=== PATIENT | male | born 1965 | race American Indian/Alaskan Native ===

== ENCOUNTER 2022-05-01 09:19 | Day surgery (SDC) | payer OTHER ==
[2022-05-01] MEDS ORDERED: LACTATED RINGERS 1,000 ML ONE (10:00)
[2022-05-01] MEDS ORDERED: MIDAZOLAM 2 MG/2 ML INJ ONE (10:35)
--- NOTE | 2022-05-01 10:36 | Anesthesia Consultation ---
Anesthesia Consult and Med Hx Date of service: 05/01/22 - Airway Anesthetic Teeth Evaluation: Good Mental/Hyoid Distance: Adequate Mallampati Class: Class II Intubation Access Assessment: Good - Pulmonary Exam CTA: Yes - Cardiac Exam Cardiac Exam: RRR - Pre-Operative Health Status ASA Pre-Surgery Classification: ASA3 Proposed Anesthetic Plan: General - Pulmonary Hx Smoking: Yes (STOPPED X 20 YRS) Hx Sleep Apnea: No (SYED PRE SCREEN HIGH RISK) - Cardiovascular System Hx Hypertension: Yes Hx Heart Murmur: Yes (1999) - Endocrine Hx Non-Insulin Dependent Diabetes: Yes - Hematic Hx Anemia: No - Other Systems Hx Alcohol Use: Yes (2-3 DRINKS PER DAY) Hx Cancer: No
--- NOTE | 2022-05-01 10:36 | Anesthesia Day of Surgery ---
Anesthesia Day of Surgery - Day of Surgery Patient Examined: Yes Patient H&P Reviewed: Yes Patient is NPO: Yes
[2022-05-01] MEDS ORDERED: HYDROmorphone 0.5 MG/0.5 ML INJ IV PRN (10:37)
[2022-05-01] MEDS ORDERED: LACTATED RINGERS 1,000 ML IV SCH (11:00)
[2022-05-01] MEDS ORDERED: MIDAZOLAM 2 MG/2 ML INJ IV NR (11:00)
[2022-05-01] MEDS ORDERED: ceFAZolin/Water 2 GM/20 ML 2 GM/20 ML SYRINGE IV ONE (11:01)
[2022-05-01] MEDS ORDERED: ceFAZolin/STERILE WATER 2 GM/20 ML SYRINGE IV SCH (12:00)
[2022-05-01] MEDS ORDERED: LIDOCAINE MPF (2%) 20 MG/1 ML VIAL 5 ML ONE (12:33)
[2022-05-01] MEDS ORDERED: fentaNYL 100 MCG/2 ML INJ ONE (12:33)
[2022-05-01] MEDS ORDERED: ONDANSETRON 4 MG/2 ML INJ ONE (12:33)
[2022-05-01] MEDS ORDERED: propofoL 200 MG/20 ML VIAL IV ONE (12:33)
--- NOTE | 2022-05-01 13:45 | Short Stay Summary ---
Short Stay Documentation Date of service: 05/01/22 - History H&P: obtained from office - Allergies and Medications Current Medications: Allergies No Known Allergies Allergy (Verified 04/27/22 14:41) Home Medications Medication Instructions Recorded Confirmed Last Taken Type Aspirin [[place] Aspirin EC] 81 mg PO DAILY 04/27/22 04/27/22 Unknown History Empagliflozin [Jardiance] 25 mg PO DAILY 04/27/22 04/27/22 Unknown History Insulin Glargine/Lixisenatide 30 unit SQ DAILY 04/27/22 04/27/22 Unknown History [Soliqua 100 Unit-33 Mcg/ml Pen] Insulin Regular, Human [Novolin R 15 unit SQ TID 04/27/22 04/27/22 Unknown History Flexpen] Lisinopril/Hydrochlorothiazide 1 each PO DAILY 04/27/22 04/27/22 Unknown History [Zestoretic 10-12.5 mg Tablet] Metformin HCl [Metformin HCl ER] 1,000 mg PO BID 04/27/22 04/27/22 Unknown History Metoprolol [Lopressor] 100 mg PO DAILY 04/27/22 04/27/22 Unknown History Ondansetron [Zofran Odt] 4 mg PO PRN PRN 04/27/22 04/27/22 Unknown History Oxycodone HCl/Acetaminophen 1 each PO PRN PRN 04/27/22 04/27/22 Unknown History [Endocet 5-325 mg Tablet] Rosuvastatin Calcium [Crestor] 10 mg PO DAILY 04/27/22 04/27/22 Unknown History Tamsulosin [Flomax] 0.4 mg PO QDAY 04/27/22 04/27/22 Unknown History amLODIPine [Norvasc] 10 mg PO DAILY 04/27/22 04/27/22 Unknown History Active Medications Cefazolin Sodium (Cefazolin/Sterile Water 2 Gm/20 Ml Syringe) 2 gm IV PREOP JESSICA Hydromorphone HCl (Hydromorphone 0.5 Mg/0.5 Ml Inj) 0.5 mg IV Q10MIN PRN PRN Reason: Pain , Severe (7-10) Stop: 05/01/22 20:00 Lactated Ringer's (Lactated Ringers) 1,000 mls @ 125 mls/hr IV DIRECT JESSICA Stop: 05/01/22 23:00 Midazolam HCl (Midazolam 2 Mg/2 Ml Inj) 2 mg IV PREOP NR Stop: 05/01/22 23:59 - Brief post op/procedure progress note Date of procedure: 05/08/22 Pre-op diagnosis: stone Post-op diagnosis: same Procedure: cysto, rpg, rt ureteroscopy stent Anesthesia: GETA Surgeon: KELBY CARDENAS Condition: stable - Hospital course Hospital course: macrobid, norco, post op info - Disposition Condition at discharge: Stable Disposition: 01 HOME / SELF CARE / HOMELESS Short Stay Discharge Plan Follow up with: PRIMARY CAREMD [Primary Care Provider] - 7 Days
[2022-05-01] MEDS ORDERED: WATER FOR IRRIG STERILE 2000 ML IR ONE (13:48)
--- NOTE | 2022-05-01 14:02 | Post Anesthesia Evaluation ---
- Post Anesthesia Evaluation Patient Participated: Yes Airway Patent: Yes Stable Respiratory Function: Yes Nausea/Vomiting: No Temp > 96.8F: Yes Pain Manageable: Yes Adequeate Hydration: Yes Anesthesia Complications: No
--- NOTE | 2022-05-01 14:39 | Operative Report ---
DATE OF SURGERY: 05/01/2022 PREOPERATIVE DIAGNOSIS: Right proximal ureteral stone, 9 mm. POSTOPERATIVE DIAGNOSES: Right proximal ureteral stone, 9 mm. Now distal ureteral stone x2. PROCEDURES PERFORMED: Cystoscopy, bilateral retrograde pyelograms, right ureteroscopy, holmium laser lithotripsy, basket stone extraction, double-J stent (6-Gambian 26 cm with external string). SURGEON: Niles Varma MD ANESTHESIA: General. ESTIMATED BLOOD LOSS: Minimal. FLUIDS: Crystalloid. COMPLICATIONS: No complications. INDICATIONS: This patient is a 56-year-old gentleman seen in the office right flank pain. CT of abdomen and pelvis revealed a 9-mm proximal stone. Discussed options. He wanted to proceed with surgical intervention. Risks, benefits, complications were explained. DESCRIPTION OF PROCEDURE: The patient was taken to the operative suite, placed in a supine position. After adequate general anesthesia, placed in the dorsal lithotomy position, prepped and draped in a sterile fashion. Pancystourethroscopy was performed with a 22-Gambian Storz cystoscope. No bladder pathology. His prostate was minimally obstructing. Urethra, no strictures. No stones or tumors in the bladder. Bilateral retrograde pyelograms were obtained with an 8-Gambian [place] catheter and 8 mL of contrast. No filling defects or obstruction on the left. Right side, obvious distal filling defect x2. Two 0.035 Glidewires were placed. Rigid ureteroscopy was performed. Two stones could be appreciated, too big for extraction. A 200 micron holmium laser lithotripsy, starting at 4 reina going up to 8 for a stone was fragmented and advanced up to the second stone was able to break it up as well and extracted the fragments. Ureteroscopy up to the proximal ureter, no stones could be appreciated. A 6-Gambian 26-cm double-J stent with an external string was left indwelling. Rectal exam was benign. He was extubated and taken to recovery room. He will go home on [employer]OB[employer] and [employer]. TID: [id number] RECEIPT: [id number] LIEN/CAMRON
--- NOTE | 2022-05-01 15:27 | Fluoroscopy Report ---
FLUOROSCOPY RETROGRADE UROGRAPHY INDICATION: RIGHT URETERAL STONE.. COMPARISON: None. IMPRESSION: 1.7 minutes of fluoroscopy time was provided by radiology during retrograde urography by the urologist. 6 fluoroscopic images are presented. Please correlate with the procedural report as needed. Signer Name: Isac Garcia Jr, MD Signed: 05/01/2022 3:23 PM Workstation Name: [id number]
[2022-05-01 15:36] VITALS: BP 169/82
== END 2022-05-01 14:53 | disposition home or self-care (01) ==
LOC: OR 09:19
PROVIDERS: ATTEND Urology
DX: N20.1 Calculus of ureter (principal); E78.00 Pure hypercholesterolemia, unspecified; I10 Essential (primary) hypertension; K21.9 Gastro-esophageal reflux disease without esophagitis; M19.90 Unspecified osteoarthritis, unspecified site; E11.9 Type 2 diabetes mellitus without complications; Z79.899 Other long term (current) drug therapy; Z79.82 Long term (current) use of aspirin; Z87.891 Personal history of nicotine dependence; Z72.89 Other problems related to lifestyle; Z98.890 Other specified postprocedural states
CPT/HCPCS: 52356; 74420; 82962; C1758; C1769; C2617; J0690; J1170; J2250; J2405; J2704; J3010; J7120; Q9967